=== PATIENT | male | born 1950 | race Caucasian/White ===

== ENCOUNTER 2016-08-31 12:21 | Outpatient (CLI) | payer MEDICARE ==
--- NOTE | 2016-08-31 15:39 | ULT ---
ULTRASOUND ABDOMINAL AORTA: 08/31/16 HISTORY: Abdominal aortic aneurysm. FINDINGS: The distal abdominal aorta measures 3.9 cm in AP dimension, similar to that on the previous exam of 04/01/15. The transverse dimension at this level on today's exam is 4.9 cm compared to 3.9 cm on the p revious study. IMPRESSION: Abdominal aortic aneurysm with stable AP dimension of 3.9 cm since 04/01/15. POS: EMEKA
== END 2016-08-31 12:22 | disposition home or self-care (01) ==
LOC: NAV ULT 12:21
PROVIDERS: ATTEND Internal Medicine
DX: Z00.00 Encounter for general adult medical examination without abnormal findings (principal); I71.4 Abdominal aortic aneurysm, without rupture
CPT/HCPCS: 76775

== ENCOUNTER 2017-02-28 11:21 | Outpatient (CLI) | payer MEDICARE ==
[2017-02-28 12:48] LABS: #Basophils 0.1 thou/uL (0.0-0.2); #Eosinphils 0.2 thou/uL (0.0-0.7); #Lymphocytes 1.9 thou/uL (1.20-3.40); #Monocytes 0.6 thou/uL (0.11-0.59); #Neutrophils 6.9 thou/uL (1.40-6.50); %Basophils 0.5 % (0.0-1.0); %Eosinophils 2.3 % (0.0-10.0); %Lymphocytes 19.8 % (21.0-51.0); %Monocytes 6.3 % (0.0-10.0); %Neutrophils 71.1 % (42.0-75.0); Hemoglobin 12.8 g/dL (14.0-18.0); Mean Corpuscular HGB CONC 31.6 g/dL (32.0-36.0); Mean Corpuscular Hemoglobin 28.6 pg (27.0-31.0); Mean Corpuscular Volume 90.6 fl (80.0-94.0); Mean Platelet Volume 7.2 fL (7.4-10.4); Platelet Count 290 thou/uL (130-400); RBC Distribution Width 14.3 % (11.5-14.5); Red Blood Cell (RBC) Count 4.47 mill/uL (4.70-6.10); White Blood Cell (WBC) Count 9.7 thou/uL (4.8-10.8)
[2017-02-28 13:33] LABS: Bilirubin Negative (Negative); Blood, Urine Small (Negative); Clarity Clear (Clear); Glucose, Urine (Dipstick) Negative (Negative); Leukocyte Negative (Negative); Nitrite Negative (Negative); Protein, Urine (Dipstick) Negative (Neg-Trace); Specific Gravity, Urine 1.025 (1.005-1.030); Urobilinogen 0.2 mg/dL (0.2-1.0); pH, Urine 5.5 (5.0-9.0)
[2017-02-28 14:11] LABS: Bacteria/HPF Rare-Few HPF (None Seen); Squamous Epithelial 0-3 HPF (0-3); WBC/HPF 0-3 HPF (0-3)
[2017-02-28 18:00] LABS: ALT (SGPT) 12 U/L (8-55); AST (SGOT) 17 U/L (5-34); Albumin 4.1 g/dL (3.4-4.8); Alkaline Phosphatase 136 U/L (40-150); Anion Gap 17 mmol/L (10-20); BUN (Urea Nitrogen) 21 mg/dL (8.4-25.7); Bilirubin, Total 0.3 mg/dL (0.2-1.2); Calc. Creatinine Clearance 0 mL/min (70-130); Calcium 8.8 mg/dL (7.8-10.44); Carbon Dioxide 20 mmol/L (23-31); Chloride 112 mmol/L (98-107); Cholesterol 146 mg/dl (< 200 Desired); Estimated GFR-MDRD 44; Globulin 3.5 g/dL (2.4-3.5); Glucose 67 mg/dL (80-115); HDL Cholesterol 21 mg/dL (>60 Neg Risk); LDL Cholesterol, Calculated 80 mg/dL; Potassium 4.8 mmol/L (3.5-5.1); Protein, Total 7.6 g/dL (5.8-8.1); Sodium 144 mmol/L (136-145); Triglycerides 227 mg/dL (Less than 150)
[2017-02-28 19:16] LABS: Troponin I Less than 0.010 ng/mL (< 0.028)
== END 2017-02-28 11:22 | disposition home or self-care (01) ==
LOC: NAVSJIPCSP 11:21
PROVIDERS: ATTEND Internal Medicine
DX: I65.22 Occlusion and stenosis of left carotid artery (principal); R07.89 Other chest pain; R35.1 Nocturia; R06.09 Other forms of dyspnea
CPT/HCPCS: 36415; 80053; 80061; 81003; 81015; 82553; 84484; 85025

== ENCOUNTER 2017-02-28 11:30 | Outpatient (CLI) | payer MEDICARE | END 2017-02-28 11:31 | disposition home or self-care (01) | LOC: NAV EKG 11:30 | PROVIDERS: ATTEND Internal Medicine | DX: R07.89 Other chest pain (principal) | CPT/HCPCS: 36415; 80053; 80061; 81003; 81015; 82553; 84484; 85025; 93005 ==

== ENCOUNTER 2017-04-13 11:02 | Outpatient (CLI) | payer MEDICARE ==
[2017-04-13 13:05] LABS: PSA-Asymptomatic (SCREENING) 2.58 ng/mL (0-4.0)
[2017-04-13 15:58] LABS: #Basophils 0.1 thou/uL (0.0-0.2); #Eosinphils 0.2 thou/uL (0.0-0.7); #Lymphocytes 2.4 thou/uL (1.20-3.40); #Monocytes 0.6 thou/uL (0.11-0.59); #Neutrophils 6.9 thou/uL (1.40-6.50); %Basophils 0.7 % (0.0-1.0); %Eosinophils 2.4 % (0.0-10.0); %Lymphocytes 23.3 % (21.0-51.0); %Monocytes 5.8 % (0.0-10.0); %Neutrophils 67.8 % (42.0-75.0); Hemoglobin 12.5 g/dL (14.0-18.0); Mean Corpuscular HGB CONC 31.5 g/dL (32.0-36.0); Mean Corpuscular Hemoglobin 28.6 pg (27.0-31.0); Mean Corpuscular Volume 90.6 fl (80.0-94.0); Mean Platelet Volume 6.4 fL (7.4-10.4); Platelet Count 326 thou/uL (130-400); RBC Distribution Width 14.6 % (11.5-14.5); Red Blood Cell (RBC) Count 4.38 mill/uL (4.70-6.10); White Blood Cell (WBC) Count 10.1 thou/uL (4.8-10.8)
[2017-04-13 18:30] LABS: Ferritin 69.4 ng/mL (22-322)
[2017-04-13 18:46] LABS: Folate (Folic Acid) 18.2 ng/mL (7.0-31.4)
== END 2017-04-13 11:03 | disposition home or self-care (01) ==
LOC: NAVSJIPCSP 11:02
PROVIDERS: ATTEND Internal Medicine
DX: Z12.5 Encounter for screening for malignant neoplasm of prostate (principal); D64.9 Anemia, unspecified; Z79.899 Other long term (current) drug therapy
CPT/HCPCS: 36415; 82607; 82728; 82746; 83540; 85025; G0103